=== PATIENT | female | born 1970 | race Caucasian/White ===

== ENCOUNTER 2019-05-04 10:53 | Emergency (ER) | payer MEDICAID, SELFPAY ==
[2019-05-04 10:54] VITALS: BP 124/78; PULSE 84; RESP 20; TEMP 36.6; O2SAT 98; BMI 36.3
--- NOTE | 2019-05-04 11:10 | ED.VIS.GEN ---
History of Present Illness Chief Complaint: General Illness Detail of Chief Complaint: Fever and productive cough Informant: Patient, Family Onset: Weeks - Approximately 2 weeks ago Context: Sudden Onset Timing: Continuous Quality: Elevated temperature at night, subjective. Productive cough Location: Respiratory tract Current Severity: Mild Maximum Severity: Moderate Worsened by: Nothing Relieved by: Nothing Associated Symptoms: Initially nasal symptoms Narrative: Is a 49-year-old woman who is a former smoker. She is a she quit 16 years ago. She states initially had nasal congestion and cough. She was seen at outside facility and told she had bronchitis. She presents because of persistent cough and persistent subjective fever. She complains of myalgias arthralgias and head discomfort. She denies photophobia, neck pain or neck stiffness. She does report nausea, vomiting diarrhea in the past 3 days. She has not noted any blood or mucus in her diarrhea. Emesis was not bloody and did not have coffee-ground appearance. She has not noted a rash. She denies urologic symptoms. Prior similar symptoms: Yes - 2 years ago when diagnosed with pneumonia Recent Illness/Hospitalization: Yes - Last week at outside facility - Past Medical History (1) History of pneumonia Status: Acute Past Medical History - Allergies and Home Meds Allergies/Adverse Reactions: Allergies No Known Allergies Allergy (Verified 05/04/19 10:57) Primary Care Physician: June Agustin MD [Primary Care Provider] - Prior records reviewed: Yes Lives: With Family Smoking Status: Former smoker Alcohol: None Drugs: None Review of Systems General: Reports: Chills, Fever, Malaise, Subjective, Sweats. Denies: Weight loss Eyes: Denies: Visual changes - bilaterally, Blurred Vision - bilaterally, Diplopia ENT: Reports: Rhinorrhea. Denies: Bilateral ear pain, Sore throat Cardiovascular: Reports: Heart racing. Denies: Chest pain, Palpitations Respiratory: Reports: Cough, Sputum. Denies: Dyspnea, Dyspnea on exertion, Orthopnea, Paroxysmal nocturnal dyspnea Gastrointestinal: Denies: Abdominal pain, Nausea, Vomiting, Diarrhea, Melena, Hematochezia Genitourinary: Denies: Dysuria, Hematuria, Frequency Musculoskeletal: Reports: Myalgias, Arthralgias, Neck pain, Back pain. Denies: Swelling, Extremity Pain Skin: Denies: Rash, Abscess, Abrasions, Wounds Neurological: Reports: Weakness. Denies: Parasthesia, Numbness Psych: Denies: Depression, Anxiety Hematologic: Denies: Easy bruising, Easy bleeding Allergy: Denies: Uticaria, Swelling of the mouth Physical Exam Vital Signs/Narrative: Vital Signs Temp Pulse Resp BP Pulse Ox 05/04/19 10:54 98 F 84 20 H 124/78 H 98 Inital Vital Signs reviewed: Yes General: Well nourished, Well developed, - - Skin appears ill but not toxic Head: Normocephalic, Atraumatic Eyes: Perrl, EOMI. Negative for: Pale conjunctiva, Scleral icterus ENT: No rhinorrhea, TM's clear, Dry mucous membranes Neck: Supple, Nontender, No lymphadenopathy, No JVD Cardiovascular: Regular rate, Regular rhythm, No murmurs, Normal S1, Normal S2 Respiratory: No distress, CTA bilaterally, Chest nontender Abdomen: Soft, Nontender, Nondistended, Normal bowel sounds Back: Nontender, Normal Inspection. Negative for: CVA tenderness Extremities: Nontender, No edema. Negative for: Calf Tenderness Skin: Normal color, No rash Neurological: Alert, Oriented x3, Cranial nerves II-XII grossly intact, Normal Strength, Normal Sensation Psychological: Normal affect, Normal Mood Diagnostic/Tx/Re-eval Chest X-Ray - ED: 2 View, Read by ED Physician, Normal, Heart, Lungs, Mediastinum, Bony Structures, No Acute Disease, Chronic Changes Impressions Chest X-Ray 05/04/19 11:30 IMPRESSION: Normal x-ray examination of the chest. Electronically Signed: Suhail Castillo DO at 11:54 EDT Tel , Service support , 05/04/19 11:30 Chest PA and Lateral [RAD] Stat Laboratory Results 05/04/19 05/04/19 11:20 11:20 WBC 7.7 RBC 5.56 H Hgb 15.2 H Hct 45.2 MCV 81.3 MCH 27.3 MCHC 33.6 RDW 15.0 H RDW Differential 44.9 H Plt Count 189 MPV 9.7 Immature Gran % (Auto) 0.300 Neut % (Auto) 33.3 L Lymph % (Auto) 53.1 H [place] % (Auto) 8.7 Eos % (Auto) 0.9 Baso % (Auto) 3.7 H Absolute Neuts (auto) 2.6 Absolute Lymphs (auto) 4.07 Sodium 138 Potassium 3.8 Chloride 100 Carbon Dioxide 32.0 Anion Gap 6 BUN 16 Creatinine 0.84 Estim Creat Clear Calc 72.90 Est GFR (MDRD) Af Amer 93 Est GFR (MDRD) Non-Af 77 BUN/Creatinine Ratio 19.1 Glucose 101 Calcium 9.0 - Rhythm Strip Rhythm Strip: Sinus Rhythm Rate: 86 Ectopy: None - Medical Decision Making Presents with mostly symptoms started 2 weeks ago. She denies a productive cough. IV was established. She received an IV bolus since clinically she appears dehydrated. Because this is her second ER visit and symptoms have gotten worse we will obtain chest x-ray and baseline blood work. Patient was reassessed at 1155. She has wheezing with coughing. She has used inhaler in the past. Since she has a productive cough with fever for [address] on antibiotics and metered-dose inhaler. She was given a dose of antitussive agent prior to discharge. ED Disposition - Plan for ED Patient: Disposition: Home or Assisted Living Diagnosis: Purulent bronchitis, Bronchospasm Instructions: BRONCHITIS, Antiobiotic Treatment (Adult) Prescriptions: Doxycycline 100 mg PO BID #14 cap Prescription Printed Albuterol Inhaler [Ventolin Hfa] 2 puff INHALATION Q4H PRN PRN #1 inhaler PRN Reason: Wheezing Prescription Printed Referrals: June Agustin MD [Primary Care Provider] - 1 Week if not improving
--- NOTE | 2019-05-04 11:30 | RAD_ITS ---
STUDY: X-RAY CHEST REASON FOR EXAM: Female, 49 years old. Fever and productive cough TECHNIQUE: PA and lateral views of the chest. COMPARISON: None. FINDINGS: The lungs are clear and expanded. There is no demonstrated pleural abnormality. Normal size heart. Normal mediastinum and jake. Normal visualized pulmonary arteries. Normal visualized aortic arch and descending thoracic aorta. Normal visualized thoracic spine. Normal visualized ribs, clavicles, and shoulders. There is no demonstrated abnormality of the visualized soft tissue structures of the upper abdomen. RAD/Chest PA and Lateral IMPRESSION: Normal x-ray examination of the chest. Electronically Signed: Suhail Castillo DO at 11:54 EDT Tel , Service support ,
[2019-05-04 11:39] LABS: Anion Gap 6 (5-15); BUN 16 mg/dL (7-18); BUN/Creat Ratio 19.1 RATIO (10-20); Chloride 100 mmol/L (98-107); Creatinine, Serum 0.84 mg/dL (0.55-1.02); EST Glomerular Filtration Rate 77 mL/min (>60); Est Glom Filt Rate - Afr Amer 93 mL/min (>60); Glucose 101 mg/dL (74-106); Potassium 3.8 mmol/L (3.5-5.1); Sodium Level 138 mmol/L (136-145)
[2019-05-04 11:40] LABS: Hematocrit 45.2 % (37-47); Hemoglobin 15.2 g/dl (12.0-15.0); Mean Corp Hgb Conc 33.6 g/gl (32-36); Mean Corpuscular Hgb 27.3 pg (27.0-32.0); Mean Corpuscular Volume 81.3 fL (81-99); Mean Platelet Vol. 9.7 fl (6.2-12.0); POSITIVE COUNT NO; POSITIVE DIFFERENTIAL NO; POSITIVE MORPHOLOGY YES; Platelet Count 189 K/mm3 (150-450); RBC Distribution Width SD 44.9 fl (35.1-43.9); Red Blood Count 5.56 M/mm3 (4.2-5.4); White Blood Count 7.7 K/mm3 (4.4-11.0)
[2019-05-04 12:05] LABS: Eosinophil 1 % (0-5); Lymphocyte 51 % (19-41); Monocyte 7 % (0-10); Neutrophil-Band 14 % (0-5); Neutrophil-Segmented 27 % (47-70); Reactive Lymphocyte 2+; Total Cells Counted 100 (MANUAL DIFF)
[2019-05-04 12:11] VITALS: BP 138/83; PULSE 71; RESP 20
[2019-05-04 12:11] LABS: Red Cell Morphology NORM C+C NORMAL (NORM C&C)
[2019-05-04 12:12] LABS: Differential Indicated MANUAL DIFF
[2019-05-04 12:15] LABS: Absolute Lymphocyte Count 3.91 X10^3/ul (0.83-4.51); Absolute Neutrophil Count 5.2 X10^3/uL (2.0-7.7); Lymphocyte # 3.91 X10^3/ul (4.0); Neutrophil # 5.21 X10^3/uL (2.7-7.7)
[2019-05-04 14:23] LABS: Scan Smear per Review Criteria MANUAL DIFF
[2019-05-05 11:58] LABS: Pathologist Review Reviewed
== END 2019-05-04 12:20 | disposition home or self-care (01) ==
PROVIDERS: Emergency Provider Emergency Medicine; Family Provider Internal Medicine; PCP Internal Medicine
DX: J41.1 Mucopurulent chronic bronchitis (principal); J98.01 Acute bronchospasm; Z87.01 Personal history of pneumonia (recurrent); Z87.891 Personal history of nicotine dependence
CPT/HCPCS: 71046; 80048; 85025; 96360; 99285; J7030; J7040

== ENCOUNTER 2019-11-24 12:43 | Day surgery (SDC) | payer MEDICAID, SELFPAY ==
--- NOTE | 2019-11-18 09:43 | PCM.HP.BLA ---
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 Patient was seen previously by nurse practitioner and sent here for evaluation of surgical management and endometrial biopsy. Patient reports that her bleeding is very irregular and constant. She does not complain of significantly heavy periods but reports is constantly bleeding and is affecting her daily life as well as her work. 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 Patient would like to proceed with surgical management. Patient reports that she does well with the progesterone but does not want to continue to take hormones on a daily basis. Patient understands that she may have adenomyosis and that it is possible to failed the ablation. Patient understands that due to her age and close proximity to likely menopausal status this may at least temporized her bleeding. ? PAST MEDICAL HISTORY PAST MEDICAL HISTORY Diagnosis Date ? Anisometropia 09/26/2015 ? Aortic stenosis ? ? 2018 echocardiogram--mild ? Calcaneal spur 07/27/2012 ? Chronic diffuse otitis externa of right ear 08/20/2015 ? Corns and callosities 12/29/2008 ? Dysmenorrhea ? ? Dysthymic disorder ? ? Depression (non-psychotic) ? Edema 01/31/2009 ? Excessive or frequent menstruation ? ? Heavy periods ? Fissure in skin of foot 01/14/2012 ? Plantar fascial fibromatosis 08/03/2012 ? Pneumonia, organism unspecified(486) 12/15/08 ? [facility] adm- bilateral ? Polymenorrhea 2010 ? Rheumatic heart disease 04/25/2010 ? Sebaceous cyst 03/12/2015 ? Skin tag 03/12/2015 ? PAST SURGICAL HISTORY PAST SURGICAL HISTORY Procedure Laterality Date ? DELIVERY ONLY ? ? , low cervical; Classical - 2007 ? D&C, DIAG AND/OR THERAPEUTIC ? 03/28/07, 2011 ? Dilation & curettage ? HEART CATHETERIZATION ? 04-25-09 ? heart cath at [facility] main ? LIGATE FALLOPIAN TUBE ? 2007 ? Tubal ligation with C/S ? TREAT ECTOPIC PREG,NON REMVAL ? 2002 ? Ectopic left tube removed ? FAMILY HISTORY FAMILY HISTORY Problem Relation Age of Onset ? Prostate Cancer Father ? ? Alcohol/Drug Father ? ? Allergies Father ? ? Cataract Father ? ? Diabetes Maternal Grandmother ? ? Heart Maternal Grandmother ? ? Heart Mother ? ? CHF ? Hypertension Mother ? ? Diabetes Mother ? ? Stroke Mother ? ? Allergies Mother ? ? None Brother ? ? SOCIAL HISTORY Social History ? Tobacco Use ? Smoking status: Former Smoker ? ? Packs/day: 1.00 ? ? Years: 10.00 ? ? Pack years: 10.00 ? ? Last attempt to quit: 10/26/1999 ? ? Years since quittin.0 ? Smokeless tobacco: Never Used ? Tobacco comment: 7 years ago. Substance Use Topics ? Alcohol use: Yes ? ? Comment: 3 per month ? Drug use: No ? CURRENT MEDICATIONS Current Outpatient Medications Medication Sig ? norethindrone (AYGESTIN) 5 mg tablet Take 2 tablets by mouth once daily. ? COMPOUNDED PRESCRIPTION Compression stockings 20-30 mmHg Dx: DVT left popliteal I82.432 ? hydroCHLOROthiazide (HYDRODIURIL, ESIDRIX) 25 mg tablet Take 1 tablet by mouth once daily as needed. For fluid retention ? Ipratropium (ATROVENT) 17 mcg/actuation inhaler Inhale 2 Puffs as instructed every 6 hours. as needed ? albuterol HFA (PROVENTIL HFA, VENTOLIN HFA) 90 mcg/actuation inhaler Inhale 2 Puffs as instructed every 6 hours as needed for Wheezing/Shortness of Breath. ? MULTI-VITAMIN ORAL Take by mouth. ? miSOPROStol (CYTOTEC) 200 mcg tablet Take two tablets PO night before procedure and two tablets morning of procedure ? ibuprofen (MOTRIN) 600 mg tablet Take 1 tablet by mouth every 6 hours as needed. FOR PAIN. ? miSOPROStol (CYTOTEC) 200 mcg tablet Use 2 tablets vaginally as directed. The night before the procedure and the morning of the procedure. ? No current facility-administered medications for this visit. ? Allergies As of Date: 11/15/2019 Allergen Noted Reaction ASA [ASPIRIN] 03/01/2013 Unknown ENVIRONMENTAL [OTHER] 07/05/2007 Other: See Comments STEROIDS [CORTICOSTEROIDS (GLUCOC*07/27/2012 Shortness of Breath ? Fully Assessed 11/15/2019 ? ? REVIEW OF SYSTEMS Abdomen: No abdominal pain, nausea, vomiting, diarrhea, or constipation. Bladder: no dysuria .. Expanded ROS: GENERAL: Negative for fever Allergies and current medication updated:Yes ? EXAM: BP 136/80 Wt 216 lb (98.0kg) LMP 10/17/2019 ? GENERAL: pleasant, female in no apparent distress HEENT: Normocephalic and atraumatic NECK: full range of motion DERMATOLOGY: Normal, without lesions, non-icteric and non-hirsute ? PELVIC: external genitalia normal, normal Bartholin's glands, urethra, Somerton's glands, no vulvar lesions, no cervical lesions, good vaginal support, physiologic discharge present, normal appearing perineal body and perianal region NEURO: alert and oriented x3,exam grossly non-focal EXTREMITIES: normal ? Mildly prominent inhomogeneous uterus without focal solid or cystic lesion. ?Normal-appearing endometrium Left ovary demonstrates a septated cyst laterally and a complex cyst medially with a pattern typical of a hemorrhagic cyst. ?Findings are almost certainly benign. 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 Transcribe Date/Time: Oct ?4:59P Dictated by : SUSANNE SANTOS MD This examination was interpreted and the report reviewed and electronically signed by: SUSANNE SANTOS MD on Oct ?5:06PM ?EST Results-Findings ? * * *Final Report* * * DATE OF EXAM: Oct ?3:10PM ? [facility] ? 1060 ?- ?US FEMALE PELVIS TRANSVAG ?/ PROCEDURE REASON: Abnormal uterine bleeding (AUB) ?? ? * * * * Physician Interpretation * * * * ?EXAMINATION: ? TRANSVAGINAL AND LIMITED TRANSABDOMINAL PELVIC ULTRASOUND CLINICAL HISTORY: ?Abnormal uterine bleeding TECHNIQUE: Sonography of the pelvis was performed by transvaginal and transabdominal (limited) techniques. ?Images were obtained and stored in a permanent archive. MQ: ?UFP_1 COMPARISON: Comparison is made to prior pelvic ultrasound dated and March 2014 RESULT: Uterus size: Prominent measuring 12.5 x 7.5 x 6.1 cm transabdominally. ?? ? -Orientation: Anteverted ?? ? -Myometrium: Inhomogeneous myometrium without focal mass. ?? ? -Endometrial echo complex: Homogeneous measuring 10 mm transvaginally. ?? ? -Cervix: normal Right ovary: 3.3 x 2.0 x 1.6 cm transabdominally. ?Right ovary is not seen transvaginally. ?Normal follicular changes and vascular flow identified. Left ovary: 4.9 x 3.5 x 3.5 cm. cm. ?Septated cyst within the lateral aspect of the left ovary measures 4 x 2 cm cross-sectionally. ?Medial to this is a complex cyst with internal lacy septations within appearance typical of a hemorrhagic cyst. ?Arterial and venous vascular flow is identified. Pelvis free fluid: None. ? ? ? ASSESSMENT AND PLAN: Encounter Diagnosis ? ? ICD-10-CM ? 1. Abnormal uterine bleeding (AUB) N93.9 HCG QUAL UR B/O ? ? ENDOMETRIAL BIOPSY ? ? CANCELED: SURGICAL PATHOLOGY ? 2. Pt has been counseled on risks/benefits and alternatives of surgery including but not limited to anesthesia, bleeding, infection, injury to pelvic structures including bowel, bladder, ureters and vessels. Pt wishes to proceed with surgery at this time. 3. EMB not able to be obtained today due to cervical stenosis. I discussed with the patient that I'm willing to proceed with the surgical procedure of hysteroscopy D&C and endometrial ablation but she has to understand that if she has hyperplasia that my recommendation would be for hysterectomy after the surgery. Patient is in agreement. We'll like to proceed. Consent was obtained today. Postoperative medications were given. ? Discussed the possible diagnosis of adenomyosis and my suggestion for continuing hormonal therapy to stay conservative versus surgical management. We discussed that because of her age and her close proximity to menopause she may likely benefit from the ablation however it also may fail. Patient understands this and wishes to proceed with surgical management. Patient declines a hysterectomy at this time. ? Kelsi Remy MD ?
[2019-11-24] VITALS (7 sets, daily range): BP systolic 102–166; BP diastolic 70–89; PULSE 55–74; RESP 16; TEMP 36.6–37.4; O2SAT 97–100; BMI 35.6
--- NOTE | 2019-11-24 | EMB_PTH ---
PATIENT: ALONDRA GALLARDO LOC: [facility] [place] U#:[id number] AGE/SX: 49/F ROOM: RE11/24/[address]: Dr. Kelsi Remy, MDDOB: 1970 BED: DIS: 11/24/2019 SPEC #: [id number] RECD: 11/24/19 15:33 STATUS: JAIME RESloan #: [id number] LALITA: 11/24/19 00:[address]: Kelsi Remy DEPT: SURGICAL PATHOLOGY RECD BY: Bryn Mendoza ENTERED: 11/25/19 07:49 SP TYPE: ENDOM BX/C OTHR DR: Dr. June Agustin MD Tissues: Endometrium, NOS Procedures: Surgery Specimen Level IV HEADER OPERATION: Hysteroscopy, Bronwyn ablation, D & C PRE-OP DIAGNOSIS: Abnormal uterine bleeding TISSUE SUBMITTED: Endometrial curettings MICROSCOPIC DIAGNOSIS Endometrial curettings: Fragments of benign endometrial tissue with changes consistent with exogenous hormone effect. Fragments of benign ecto- and endocervical mucosa with chronic inflammation. Fragments of myometrium. NATALIE:stephani 11/28/19 MICROSCOPIC DESCRIPTION Slides are reviewed. GROSS DESCRIPTION Received in fixative is one container labeled with the patient's name and designated endometrial curettings. The specimen consists of multiple fragments of hemorrhagic soft tissue that in aggregate measure 3 x 2.5 x 0.2 cm. The specimen is totally submitted in one cassette. / NATALIE:stephani 11/25/19 TC:5 CPT: 99361
[2019-11-24 13:15] LABS: Internal QC Validated? YES +Cl - CLEAR BKGD; Pregnancy, Urine Negative Negative
[2019-11-24] MEDS: Lactated Ringers 1,000 ML 100 ML IV (13:17)
--- NOTE | 2019-11-24 14:03 | OP.PCM_ITS ---
Report of Operation Date of Procedure: 11/24/19 Pre-Operative Diagnosis: AUB, stenotic cervix Post-Operative Diagnosis: same Surgery/Procedure Performed:: Hysteroscopy, D&C, Bronwyn Endometrial ablation Description of Surgical Findings:: Endocervical canal measured 4cm, Uterus sounded to 10.5cm total. Bronwyn device set at 6.5cm. 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 Bladder was drained prior to the start of the procedure. At this time the weighted speculum was placed the posterior fornix of the vagina then a single-tooth tenaculum was used to grasp the anterior lip of the cervix. At this time the uterus was sounded to [id number] the endocervical canal sounded to 4 cm. Next cervix was dilated in incremental fashion. Once adequate dilatation was achieved the hysteroscope was inserted using normal saline as distention medium. On hysteroscopy there were no gross abnormalities. At this time sharp curettage was performed which yielded small amount of endometrial tissue. tissue will be sent to pathology for evaluation. At this time the Bronwyn device was opened. The Bronwyn was set at 6.5cm. The device was activated. Prior to activation the field test was performed and cavity was intact. The device was then fired and activated for 120 seconds. Once the 120 seconds was completed the device was removed intact and the tenaculum was removed. Good hemostasis was appreciated. Weighted speculum was removed. Vaginal sweep was performed is negative. There were no complications. Anticipated normal postoperative course for this patient. Instrument and lap count were correct ?2. Grafts/Implants Used: none - Complications none - Admit VTE Documentation VTE Present on Admission: Yes VTE Mechan Device Prophylaxis: SCD's VTE Pharm Prophylaxis ordered?: No
--- NOTE | 2019-11-24 14:07 | DCINST_ITS ---
Discharge Diet: No Restrictions Discharge Activity: Return to Normal Activity, May Shower, May Take a Tub Bath - in 2 weeks. Allergies/Adverse Reactions: Allergies No Known Allergies Allergy (Verified 11/24/19 12:47) Medications to take at Discharge Albuterol Inhaler [Ventolin Hfa] 2 puff INHALATION Q4H PRN PRN #1 inhaler 05/04/19 Doxycycline 100 mg PO BID #14 cap 05/04/19 Hydrochlorothiazide [Hctz] 25 mg PO DAILY 11/23/19 Orders to be completed after discharge: CBC-Complete Blood Cnt No Diff Time Frame: 11/24/19, Facility: [facility], Location: Laboratory Primary Care Physician: June Agustin MD [Primary Care Provider] - Test Results: Test results from this visit will be discussed in further detail at your follow- up appointment, if applicable.
[2019-11-24] MEDS: HYDROcodone Bitartrate/Apap 5/325 Tablet PO (15:11)
== END 2019-11-24 15:48 | disposition home or self-care (01) ==
LOC: SDC 12:44 → AC 12:46
PROVIDERS: PCP Internal Medicine; Referring Provider Obstetrics & Gynecology; Visit Provider Obstetrics & Gynecology
PROC: 0U5B8ZZ Destruction of Endometrium, Via Natural or Artificial Opening Endoscopic (ICD-10-PCS; CPT 58558; principal; 2019-11-24 13:35)
DX: N93.9 Abnormal uterine and vaginal bleeding, unspecified (principal); N88.2 Stricture and stenosis of cervix uteri; J45.909 Unspecified asthma, uncomplicated; Z87.891 Personal history of nicotine dependence
CPT/HCPCS: 58563; 81025; 88305; J7120; J2405

== ENCOUNTER → 2020-11-28 | Outpatient (CLI) | payer MEDICAID, SELFPAY ==
[2019-11-24 13:05] VITALS: BMI 35.6
--- NOTE | 2020-11-28 | LES_PTH ---
PATIENT: ALONDRA GALLARDO LOC: [facility] U#:[id number] AGE/SX: 50/F ROOM: RE11/28/[address]: Dr. Rayshawn Dunbar MD : 1970 BED: DIS: 11/28/2020 SPEC #: [id number] RECD: 11/28/20 14:56 STATUS: JAIME OLIVE #: [id number] LALITA: 11/28/20 00:[address]: Rayshawn Dunbar DEPT: SURGICAL PATHOLOGY RECD BY: Bryn Mendoza ENTERED: 11/29/20 12:32 SP TYPE: Lesion OTHR DR: Dr. June Agustin MD Tissues: Skin of eyelid, NOS Procedures: Surgery Specimen Level IV HEADER OPERATION: Left lower lid excision PRE-OP DIAGNOSIS: Increased size with vascularity TISSUE SUBMITTED: Left lower lid MICROSCOPIC DIAGNOSIS Left lower eyelid lesion, biopsy: Squamous papilloma, mildly inflamed. AM:stephani 11/30/2020 MICROSCOPIC DESCRIPTION Slides are reviewed. GROSS DESCRIPTION Received in fixative is one container labeled with the patient's name and designated left lower eyelid. The specimen consists of one irregular fragment of light weiner soft tissue that measures 0.2 x 0.1 x <0.1 cm. The specimen is totally submitted in one cassette. / AM:stephani 11/29/20 TC:5 CPT: 07494
== END | disposition home or self-care (01) ==
LOC: LABSPEC 15:04
PROVIDERS: PCP Internal Medicine; Referring Provider Ophthalmology; Visit Provider Ophthalmology
DX: D23.112 Other benign neoplasm of skin of right lower eyelid, including canthus (principal)
CPT/HCPCS: 88305

== ENCOUNTER 2022-07-01 09:18 | Emergency (ER) | payer MEDICAID, SELFPAY ==
[2022-07-01 09:19] VITALS: BP 152/80; PULSE 94; RESP 18; TEMP 36.4; O2SAT 100; BMI 29.9
--- NOTE | 2022-07-01 09:37 | RAD_ITS ---
STUDY: X-RAY CHEST REASON FOR EXAM: Female, 52 years old. Blunt trauma TECHNIQUE: Frontal and lateral views of the chest. COMPARISON: None. FINDINGS: The lungs are clear and expanded. There is no demonstrated pleural abnormality. Normal size heart. Normal mediastinum and jake. Normal visualized pulmonary arteries. Normal visualized aortic arch and descending thoracic aorta. There is a levoscoliosis of the thoracic spine. There is degenerative osteoarthritis of the bilateral shoulders. There is no demonstrated abnormality of the visualized soft tissue structures of the upper abdomen. RAD/Chest PA and Lateral IMPRESSION: Degenerative changes, as described above. No demonstrated acute cardiopulmonary process. Electronically Signed: Rancho Dietrich MD at 10:30 EDT ,
--- NOTE | 2022-07-01 09:39 | EDS_ITS ---
HPI HPI - Fall History of Present Illness Chief Complaint: Fall Detail of Chief Complaint: Fell past weekend down 2 steps Informant: patient Occured/Mechanism Occurred: Days Mechanism/Context: Yes trip Narrative: Patient was walking on the steps and tripped. She went down 2 steps landing face first. She presents because of pain that she localizes mid to anterior axillary line on the left near the tail of her breast Fall down steps #: 2 steps Usually ambulates: Without assistance Pain/Injury Location: Numerous locations Pain Location: chest and lower extremity Quality of Pain: Dull and Aching Current Severity: Mild Maximum Severity: Moderate Worsened by: Chest pain is worse with movement and deep breathing Relieved by: Nothing Associated Symptoms Associated Symptoms: Negative for Parasthesias, Weakness, Loss of function, Inability to ambulate, Loss of consciousness or Amnesia Narrative Tetanus Immunization: 5-10 years Prior similar symptoms: No Recent Illness/Hospitalization: No PFSH PFS Medical History (Updated 07/01/22 @ 11:[address] Rosendo Van MD) Hypertension Home Medications hydrochlorothiazide 25 mg tablet 25 mg PO DAILY 11/23/19 [History Last Taken 11/24/19 05:00] hydrocodone-acetaminophen 5-325mg 5mg-325mg 1 tab PO Q6H PRN PRN Pain 3 days #10 TABLETS 07/01/22 [Rx Last Taken Unknown] naproxen 500 mg tablet 500 mg PO BID #14 tabs 07/01/22 [Rx Last Taken Unknown] Allergy/AdvReac Type Severity Reaction Status Date / Time No Known Allergies Allergy Verified 07/01/22 09:21 Surgical History no surgical history no surgical history (LEEP procedure) Social History (Updated 07/01/22 @ 09:[address] Rosendo Van MD) household members: none Smoking Status: Unknown if ever smoked substance use type: does not use ROS ROS ED Constitutional Constitutional ED: Denies chills, fever(s), subjective, sweats or weight loss Eyes Eyes: Denies blurry vision, change in vision or diplopia ENT ENT ED: Reports other Details: Denies epistaxis. Denies dental trauma ; Denies ear pain or sore throat Cardiovascular Cardiovascular: Reports chest pain; Denies palpitations or racing heartbeat Respiratory/Chest Respiratory/Chest: Denies cough, dyspnea or dyspnea on exertion Gastrointestinal Gastrointestinal: Denies abdominal pain, constipation, melena, nausea or vomiting Genitourinary Genitourinary ED: Denies dysuria or hematuria Musculoskeletal Musculoskeletal: Reports myalgias; Denies arthralgias, back pain or neck pain Integumentary Reports other Details: Multiple bruises and blisters mid anterior right leg ; Denies abscess, Abrasions or rash Neurologic Neurologic: Denies headache(s), paresthesias or weakness Psychiatric Psychiatric: Denies anxiety or depression Endocrine Endocrinology: Denies polydipsia, polyphagia or polyuria Hematologic/Lymphatic Hematologic/Lymphatic: Reports easy bruising; Denies easy bleeding or lymphadenopathy EXAM Physical Exam Const Vital Signs: 07/01/22 09:19 07/01/22 10:01 Temperature 97.6 F L Temperature Source Temporal Pulse Rate 94 Respiratory Rate 18 Respiratory Effort Normal Respiratory Depth Normal Respiratory Pattern Normal Blood Pressure 152/80 H Blood Pressure Mean 104 Pulse Ox 100 Oxygen Delivery Method Room Air Positive well nourished, well developed and obese Constitutional Narrative: Patient appears uncomfortable. She does not appear in acute distress. General Appearance ED: well developed Nutritional Appearance: obese HEENT Reports normocephalic and TM's normal bilaterally HEENT Narrative: Ears normal. Nares patent. No septal deviation hematoma. No evidence of de ntal trauma. No facial bruising. atraumatic Eyes PERRL and EOMs intact bilaterally Eyes Narrative: There is no subconjunctival hemorrhage. There is no limited range of motion and specifically no evidence entrapment. There is no hyperesthesia of the infraorbital nerve. There is no pain ovation infraorbital rim. General Eye ED: Negative for pale conjunctiva or scleral icterus Neck full ROM, no lymphadenopathy and supple Neck Narrative: There is no midline posterior neck pain. Chest Wall palpation of chest normal; Negative for inspection of chest normal Chest Narrative: Bruising noted. There is no crepitus or subcutaneous air. Patient denies pain over the clavicle or AC joint. There is slight tenderness over the left fifth sixth seventh rib mid axillary line. There is no crepitus appreciated with auscultation. Resp normal respiratory effort, no retractions and clear to auscultation bilaterally Cardio regular rate, regular rhythm, S1 normal heart sound, S2 normal heart sound and no murmurs GI non-tender, non-distended and no masses Inspection: abdominal distention Palpation: soft Back/Spine no CVA tenderness Cervical Spine: Negative for cervical spine tenderness Lumbar Spine / Lower Back: Negative for lumbar spinal tenderness Extremity Extremity Narrative: Patient has bruises upper and lower extremity. The bruising is much worse lower extremities and specifically the right lower leg. There are cluster of blisters noted and they appear turbid. There is no evidence of compartment syndrome. There is no joint line tenderness of the right or left knee. There is no laxity with varus valgus stress testing. There is no pain to palpation over the lateral medial malleolus right or left ankle. Patient was seen ambulating. She walks slowly. There is no limp. There is bruises noted right upper extremity greater than left. There is no specific bone tenderness over the proximal humerus, lateral medial epicondyle, olecranon process or radial head on the right or left side. There is no pain ovation over the distal radius, ulna, carpal bones or metacarpal bones or phalanges right or left upper extremity. Axillary, median, radial and ulnar nerve function intact. Patient is able to AB duct past 90 degrees right and left side. Neuro oriented x3, CN's II-XII intact bilaterally, moves all extremities, no focal motor deficits and no sensory deficits noted Canones Coma Scale: document GCS findings Spontaneous Obeys Commands Oriented 15 Sensorium / Orientation: alert Motor Exam: strength 5/5 throughout Psych mental status grossly normal and thought process normal Skin Lesions: no lesions Rashes: no rashes MDM MDM MDM Narrative Medical decision making narrative: In spite of patient stating she does not complain of shortness of breath she appears short of breath. Will obtain chest x-ray because of concern for pneumothorax and possible rib fracture. Patient was offered pain medicine which she declined. Needle aspirate of the turbid appearing blisters were obtained. Appears to be a hemorrhagic blister. Fluid was sent for gram stain, cell count and Lab Data Lab results narrative: Gram stain reveals rare red and rare white. No organisms seen. Therefore will not prescribe antibiotics. Patient be discharged with pain medicine and appropriate follow-up Labs: Laboratory Results - last 24 hr 07/01/22 09:55 Fluid Source Cancelled Fluid Color Cancelled Fluid Appearance Cancelled Fluid WBC Cancelled Fluid RBC Cancelled Fluid Tot Cell Count Cancelled Fld Polynuclear WBCs # Cancelled Fld Polynuclear WBCs % Cancelled Fluid Mononuclear WBCs Cancelled Fld Mononuclear WBCs % Cancelled Fluid Neutrophils Cancelled Fluid Lymphocytes Cancelled Fluid Monocytes Cancelled Fluid Plasma Cells Cancelled Fluid Macrophages Cancelled Fld Mesothelial Cells Cancelled Fluid Other Cells Cancelled Fl Pathologist Comment Cancelled Fluid Comment 2 Cancelled Radiography Diagnostic Testing: Clinical Impression(s) from Imaging Studies Chest X-Ray 07/01/22 09:37 IMPRESSION: Degenerative changes, as described above. No demonstrated acute cardiopulmonary process. Electronically Signed: Rancho Dietrich MD at 10:30 EDT Reading Location ID and State: [facility] / [place] Tel , Service support , 2 view chest x-ray was independently reviewed and interpreted by me at 1027 as negative for any acute process. There is degenerative changes noted in the dorsal vertebral body. There is no evidence of pneumothorax, hemothorax or pulmonary contusion. There is no evidence of fractured rib. Cardiac silhouette and size unremarkable. Perihilar regions unremarkable. Discharge Plan Triage Chief Complaint: Fall ED Provider: Rosendo Van Dx/Rx/DC Orders Clinical Impression: Injury due to fall, Facial contusion, Contusion of multiple sites of upper extremity, Contusion of multiple sites of left lower extremity, Contusion of multiple sites of right lower extremity, Blister (nonthermal), right lower leg, initial encounter, Chest wall contusion Instructions: ED Contusion, Lower Extremity, ED Contusion, Upper Extremity, ED Bruise, Rib Prescriptions: New hydrocodone-acetaminophen [hydrocodone-acetaminophen] 5-325 mg tablet 1 tab PO Q6H PRN PRN (Reason: Pain) 3 Days Qty: 10 0RF naproxen 500 mg tablet 500 mg PO BID Qty: 14 0RF No Action hydrochlorothiazide 25 MG tablet 25 mg PO DAILY Primary Care Provider: June Agustin Referrals: June Agustin MD [Primary Care Provider] - 3-5 Days if not improving Activity Restrictions/Additional Instructions: 1. Apply ice to areas of discomfort 6-8 times a day 2. Take medication as prescribed to diminish your pain. 3. If your leg becomes hot, intense red or severely painful return to the emergency department otherwise follow-up with Dr. Agustin Disposition Disposition: Home, Self Care
== END 2022-07-01 12:00 | disposition home or self-care (01) ==
PROVIDERS: Emergency Provider Emergency Medicine; PCP Internal Medicine; Visit Provider Emergency Medicine
DX: S20.20XA Contusion of thorax, unspecified, initial encounter (principal); S80.11XA Contusion of right lower leg, initial encounter; S80.12XA Contusion of left lower leg, initial encounter; W10.9XXA Fall (on) (from) unspecified stairs and steps, initial encounter; I10 Essential (primary) hypertension; S00.83XA Contusion of other part of head, initial encounter; Y93.01 Activity, walking, marching and hiking; Y92.9 Unspecified place or not applicable; Z79.899 Other long term (current) drug therapy; S40.029A Contusion of unspecified upper arm, initial encounter
CPT/HCPCS: 71046; 87070; 87075; 87205; 99282

== ENCOUNTER 2022-07-08 10:40 | Emergency (ER) | payer MEDICAID, SELFPAY ==
[2022-07-08 10:41] VITALS: BP 150/73; PULSE 67; RESP 22; TEMP 35.6; O2SAT 100; BMI 36.3
--- NOTE | 2022-07-08 11:00 | VDLE_ITS ---
Reason For Study: swelling RIGHT LEFT GSV is normal. GSV is normal. CFV is compressible, spontaneous, phasic, CFV is compressible, spontaneous, phasic, competent and demonstrates normal competent, and demonstrates normal augmentation. augmentation. FV is compressible, spontaneous, phasic, FV is compressible, spontaneous, phasic, competent and demonstrates normal competent and demonstrates normal augmentation. augmentation. POP V is compressible, spontaneous, phasic, POP V is compressible, spontaneous, phasic, competent and demonstrates normal competent and demonstrates normal augmentation. augmentation. T/P Trunk is compressible. T/P Trunk is compressible. PTV is compressible. PTV is compressible. RT PerV is compressible. LT PerV is compressible. Procedure This is a venous duplex using B-mode, color flow and spectral Doppler. Exam performed portable in ED. The exam was diagnostic. A preliminary report was called and/or faxed to Dr. Bradford. VL/Venous Duplex US - Adelso Extrem Interpretation Summary No evidence for acute deep venous thrombosis bilateral lower extremities with p atent and compressible bilateral great saphenous veins. Ordering Physician: Kwaku Bradford Performed By: Javier Ricks RVT
--- NOTE | 2022-07-08 11:01 | RAD_ITS ---
STUDY: X-RAY - LEFT TIBIA AND FIBULA REASON FOR EXAM: Female, 52 years old. Trauma TECHNIQUE: 4 view(s) of the tibia and fibula were obtained. COMPARISON: None. FINDINGS: Normal visualized tibia. Normal visualized fibula. There is non-specific soft tissue swelling. RAD/Tibia & Fibula 2 Views IMPRESSION: Soft tissue swelling. Electronically Signed: Carmine Cardenas MD at 11:59 EDT ,
--- NOTE | 2022-07-08 11:03 | EX.ED.DYSGE1 ---
HPI History of Present Illness Chief Complaint: Lower Extremity Injury Narrative Narrative: Patient fell about 2 weeks ago, she sustained bilateral lower extremity injury and blisters, these were drained in the ED and continues to have significant lower extremity swelling. She has quite a bit of pain also she has no fevers or chills. She is not a diabetic. She has no other injuries, she is able to ambulate. She injured her chest wall also however she had an x-ray which was negative and now this feels better. [facility] Medical History Hypertension Home Medications hydrochlorothiazide 25 mg tablet 25 mg PO DAILY 11/23/19 [History Last Taken 11/24/19 05:00] hydrocodone-acetaminophen 5-325mg 5mg-325mg 1 tab PO Q6H PRN PRN Pain 3 days #10 TABLETS 07/01/22 [Rx Last Taken Unknown] naproxen 500 mg tablet 500 mg PO BID #14 tabs 07/01/22 [Rx Last Taken Unknown] clindamycin HCl 150 mg capsule 300 mg PO 4X/DAY #80 caps 07/08/22 [Rx Last Taken Unknown] hydrocodone-acetaminophen 5-325mg 5mg-325mg 1 tab PO Q6H PRN pain 3 days #12 tabs 07/08/22 [Rx Last Taken Unknown] Allergy/AdvReac Type Severity Reaction Status Date / Time No Known Allergies Allergy Verified 07/08/22 10:41 Social History household members: none Smoking Status: Never smoker substance use type: does not use ROS ROS ED ROS Narrative Past medical history: Reviewed Medications: Reviewed Social history: Noncontributory Review of systems: All systems negative except as indicated General: No fever Eyes: No visual changes ENT: No upper airway congestion, normal voice Neck: No neck pain Cardiovascular: No current chest pain, she did have some chest wall pain after the that resolved Respiratory: No shortness of breath or cough Gastrointestinal: No abdominal pain, nausea vomiting or diarrhea Genitourinary: No dysuria Musculoskeletal: As in HPI Skin: No rash Neurological: No memory loss, confusion or any focal weakness Psych: No recent behavioral changes Hematologic: No easy bleeding or easy bruising up until this point. EXAM Physical Exam Narrative Exam Narrative: Physical exam General: Patient appears uncomfortable Head: Normocephalic, Atraumatic Eyes: Conjunctiva not pale ENT: Moist mucous membranes Neck: Supple, Nontender, No lymphadenopathy Cardiovascular: Regular rate, Regular rhythm Respiratory: No distress, CTA bilaterally Abdomen: Soft, Nontender, Nondistended Back: Nontender, Normal Inspection. Negative for: CVA tenderness Extremities: She has bilateral lower extremity edema which is symmetric, she has contusions throughout her entire extremities, there are at least 2 different hematomas 1 on the right 1 on the left but there is no erythema or calor over it most of these are contusions. Skin: Contusions as above Neurological: Alert, Normal Strength, Normal Sensation Psychological: Normal affect Const Vital Signs: 07/08/22 10:41 Temperature 96.1 F L Temperature Source Oral Pulse Rate 67 Respiratory Rate 22 H Blood Pressure 150/73 H Blood Pressure Mean 98 Pulse Ox 100 Oxygen Delivery Method Room Air MDM MDM MDM Narrative Medical decision making narrative: At this time clinically I do not see any signs of significant infection, there is quite a bit of confusion throughout. White count is normal patient has does not have a fever, she certainly is in pain which I will treat. Because of slight worsening I do believe it is reasonable to start antibiotics. I will give her analgesics for home. Ultrasound shows no DVTs and x-rays are unremarkable. If anything changes to return to the emergency department. Lab Data Labs: Laboratory Results - last 24 hr 07/08/22 07/08/22 07/08/22 11:40 11:40 11:40 WBC 5.8 RBC 3.67 L Hgb 10.8 L Hct 33.2 L MCV 90.5 MCH 29.4 MCHC 32.5 RDW Std Deviation 44.7 H RDW Coeff of [place] 13.8 Plt Count 303 MPV 9.6 Immature Gran % (Auto) 0.500 Neut % (Auto) 58.2 Lymph % (Auto) 28.5 Dawes % (Auto) 8.0 Eos % (Auto) 4.3 Baso % (Auto) 0.5 Absolute Neuts (auto) 3.4 Absolute Lymphs (auto) 1.64 Nucleated RBC % 0 PT 13.5 INR 1.1 APTT 26.8 Sodium 142 Potassium 3.9 Chloride 105 Carbon Dioxide 32.0 Anion Gap 5 BUN 19 H Creatinine 0.61 Estim Creat Clear Calc 97.08 Est GFR (MDRD) Af Amer 133 Est GFR (MDRD) Non-Af 110 BUN/Creatinine Ratio 31.3 H Glucose 106 Calcium 9.5 Total Bilirubin 1.00 AST 28 ALT 24 Alkaline Phosphatase 80 Total Protein 6.8 Albumin 3.5 Globulin 3.3 Albumin/Globulin Ratio 1.1 Radiography Diagnostic Testing: Clinical Impression(s) from Imaging Studies Tibia/Fibula X-Ray 07/08/22 11:01 IMPRESSION: Soft tissue swelling. Electronically Signed: Carmine Cardenas MD at 11:59 EDT , Knee X-Ray 07/08/22 11:05 IMPRESSION: Findings suggestive of chondrocalcinosis of the lateral meniscus. Soft tissue swelling. Electronically Signed: Carmine Cardenas MD at 11:59 EDT , Knee X-Ray 07/08/22 11:05 IMPRESSION: Soft tissue swelling. Tiny joint effusion. Electronically Signed: Carmine Cardenas MD at 11:56 EDT , Tibia/Fibula X-Ray 07/08/22 11:05 IMPRESSION: Soft tissue swelling overlying the midportion of the anterior tibia. Electronically Signed: Carmine Cardenas MD at 12:00 EDT , Discharge Plan Triage Chief Complaint: Lower Extremity Injury ED Provider: Kwaku Bradford Dx/Rx/DC Orders Clinical Impression: Contusion of multiple sites of right lower extremity, Fall Instructions: Bruises (Contusions) Prescriptions: New hydrocodone-acetaminophen 5-325 mg tablet 1 tab PO Q6H PRN (Reason: pain) 3 Days Qty: 12 0RF clindamycin HCl 150 mg capsule 300 mg PO 4X/DAY Qty: 80 0RF No Action hydrochlorothiazide 25 MG tablet 25 mg PO DAILY hydrocodone-acetaminophen [hydrocodone-acetaminophen] 5-325 mg tablet 1 tab PO Q6H PRN PRN (Reason: Pain) 3 Days Qty: 10 0RF naproxen 500 mg tablet 500 mg PO BID Qty: 14 0RF Primary Care Provider: June Agustin Referrals: June Agustin MD [Primary Care Provider] - 3-5 Days Disposition Disposition: Home, Self Care
--- NOTE | 2022-07-08 11:05 | RAD_ITS ---
STUDY: X-RAY - LEFT KNEE REASON FOR EXAM: Female, 52 years old. Pain following injury. TECHNIQUE: 2 view(s) of the knee. COMPARISON: None. FINDINGS: Normal visualized distal femur. Normal visualized proximal tibia and fibula. Normal proximal tibiofibular articulation. Normal medial femorotibial compartment. Normal lateral femorotibial compartment. Normal patellofemoral articulation. Soft tissue swelling. Tiny joint effusion. RAD/Knee 1 or 2 Views IMPRESSION: Soft tissue swelling. Tiny joint effusion. Electronically Signed: Carmine Cardenas MD at 11:56 EDT ,
--- NOTE | 2022-07-08 11:05 | RAD_ITS ---
STUDY: X-RAY - RIGHT TIBIA AND FIBULA REASON FOR EXAM: Female, 52 years old. TRAUMA TECHNIQUE: 4 view(s) of the tibia and fibula were obtained. COMPARISON: None. FINDINGS: Normal visualized tibia. Normal visualized fibula. Soft tissue swelling overlying the anterior midportion of the tibia. RAD/Tibia & Fibula 2 Views IMPRESSION: Soft tissue swelling overlying the midportion of the anterior tibia. Electronically Signed: Carmine Cardenas MD at 12:00 EDT ,
--- NOTE | 2022-07-08 11:05 | RAD_ITS ---
STUDY: X-RAY - RIGHT KNEE REASON FOR EXAM: Female, 52 years old. TRAUMA TECHNIQUE: 2 view(s) of the knee. COMPARISON: None. FINDINGS: Normal visualized distal femur. Normal visualized proximal tibia and fibula. Normal proximal tibiofibular articulation. Normal medial femorotibial compartment. Calcification of the lateral meniscus suggestive of chondrocalcinosis. Normal patellofemoral articulation. Soft tissue swelling. RAD/Knee 1 or 2 Views IMPRESSION: Findings suggestive of chondrocalcinosis of the lateral meniscus. Soft tissue swelling. Electronically Signed: Carmine Cardenas MD at 11:59 EDT ,
[2022-07-08 11:57] LABS: International Normalized Ratio 1.1; Prothrombin Time (Protime)PT. 13.5 SECONDS (11.7-14.9)
[2022-07-08 11:58] LABS: Partial Thromboplast Time 26.8 Seconds (24.1-36.2)
[2022-07-08 12:00] LABS: Absolute Lymphocyte Count 1.64 X10^3/uL (0.83-4.51); Absolute Neutrophil Count 3.4 X10^3/uL (2.0-7.7); Basophil# 0.03 X10^3/uL; Basophil% 0.5 % (0-1); Eosinophil# 0.25 X10^3/uL; Eosinophils% 4.3 % (0-5); Hematocrit 33.2 % (37-47); Hemoglobin 10.8 g/dL (12.0-15.0); Lymphocyte # 1.64 X10^3/ul (0.83-4.51); Lymphocyte % 28.5 % (19-41); Mean Corp Hgb Conc 32.5 g/dL (32-36); Mean Corpuscular Hgb 29.4 pg (27.0-32.0); Mean Corpuscular Volume 90.5 fL (81-99); Mean Platelet Vol. 9.6 fl (6.2-12.0); Monocyte# 0.46 X10^3/uL; NRBC Flagged by Analyzer 0 % (0-5); Neutrophil # 3.35 X10^3/uL (2.7-7.7); Neutrophil % 58.2 % (47-70); Platelet Count 303 K/mm3 (150-450); RBC Distribution Width CV 13.8 % (11.6-14.6); RBC Distribution Width SD 44.7 fl (35.1-43.9); Red Blood Count 3.67 M/mm3 (4.2-5.4); White Blood Count 5.8 K/mm3 (4.4-11.0)
[2022-07-08 12:06] LABS: ALB/GLOB Ratio 1.1 RATIO (0.9-2.4); AST(SGOT) 28 U/L (15-37); Alanine Aminotransfer ALT/SGPT 24 U/L (13-56); Albumin, Serum 3.5 g/dL (3.2-5.0); Alkaline Phosphatase 80 U/L (45-117); Anion Gap 5 (5-15); BUN 19 mg/dL (7-18); BUN/Creat Ratio 31.3 RATIO (10-20); Calcium,Total 9.5 mg/dL (8.5-10.1); Chloride 105 mmol/L (98-107); Creatinine, Serum 0.61 mg/dL (0.55-1.02); EST Glomerular Filtration Rate 110 mL/min (>60); Est Glom Filt Rate - Afr Amer 133 mL/min (>60); Estimated Creatinine Clearance 97.08 ml/min; Globulin 3.3 g/dL (2.2-4.2); Glucose 106 mg/dL (74-106); Potassium 3.9 mmol/L (3.5-5.1); Protein, Total 6.8 g/dL (6.4-8.2); Sodium Level 142 mmol/L (136-145)
[2022-07-08 12:54] VITALS: BP 152/91; PULSE 68; RESP 17; O2SAT 97
--- NOTE | 2022-07-08 12:54 | ED.RN ---
pt request pain medication that I was perscribed last time. it was for inflammation and pain. dr singh agreed and ordered naproxen to pharmacy of choice. pt inquired about purpose of iv and she was informed that it was placed of clotting study. she expressed dissatisfaction with her care. offered patient liaison information. she refused. luis rn [id number]
== END 2022-07-08 12:58 | disposition home or self-care (01) ==
PROVIDERS: Emergency Provider Emergency Medicine; PCP Internal Medicine; Visit Provider Emergency Medicine
DX: S80.11XA Contusion of right lower leg, initial encounter (principal); W19.XXXA Unspecified fall, initial encounter; R60.0 Localized edema; I10 Essential (primary) hypertension; Z79.899 Other long term (current) drug therapy
CPT/HCPCS: 73560; 73590; 80053; 85025; 85610; 85730; 93970; 99282